=== PATIENT | male | born 1965 | race Caucasian/White ===

== ENCOUNTER → 2021-11-28 | Outpatient (CLI) | payer BC | LOC: EMI 08:23 | DX: M25.511 Pain in right shoulder (principal); S43.001A Unspecified subluxation of right shoulder joint, initial encounter | CPT/HCPCS: 73221 ==

== ENCOUNTER 2022-06-27 08:35 | Emergency (ER) | payer BC ==
[2022-06-27 09:22] LABS: HEMOGLOBIN 15.4 gm/dl (14.0-17.5); RED BLOOD COUNT 4.58 M/UL (4.20-5.50); WHITE BLOOD COUNT 8.8 K/UL (4.5-11.0)
[2022-06-27 09:40] LABS: BUN/CREATININE RATIO 12 (0-10)
== END 2022-06-27 11:00 | disposition home or self-care (01) ==
LOC: ER1 08:35
PROVIDERS: Emergency Medicine
DX: R51.9 Headache, unspecified (principal)
CPT/HCPCS: 70450; 80048; 85025; 96374; 99284; J1885